=== PATIENT | male | born 1955 | race Caucasian/White ===

== ENCOUNTER 2018-04-24 19:17 | Inpatient (IN) | payer OTHER ==
[2018-04-24] MEDS: SOD CHLORIDE 0.9% 1,000 ML IV (20:10)
[2018-04-24 20:37] LABS: ADD MAN DIFF? NO
[2018-04-24 20:40] LABS: BASOPHIL # 0.1 10^3/ul (0.0-0.1); BASOPHILS % 0.4 % (0.0-2.0); EOSINOPHILS % 6.9 % (0.0-7.0); HEMATOCRIT 30.7 % (42.0-52.0); HEMOGLOBIN 10.1 g/dl (14.0-18.0); LYMPHOCYTES # 2.5 10^3/ul (0.8-2.9); LYMPHOCYTES % 18.4 % (15.0-51.0); MEAN CORPUSCULAR HEMOGLOBIN 28.9 pg (29.0-33.0); MEAN CORPUSCULAR HGB CONC 32.9 g/dl (32.0-37.0); MEAN CORPUSCULAR VOLUME 87.7 fl (82.0-101.0); MEAN PLATELET VOLUME 10.6 fl (7.4-10.4); MONOCYTES % 7.3 % (0.0-11.0); NEUTROPHIL # 9.2 10^3/ul (1.6-7.5); NEUTROPHILS % 66.5 % (39.0-77.0); PLATELET COUNT 212 10^3/UL (140-415); RED CELL DISTRIBUTION WIDTH 13.8 % (11.5-14.5)
[2018-04-24 20:40] LABS: WHITE BLOOD COUNT 13.8 10^3/ul (4.8-10.8)
[2018-04-24 20:55] LABS: INR 1.03; PROTIME 13.6 Sec (11.9-14.9); PT RATIO 1.1
[2018-04-24 20:56] LABS: PARTIAL THROMBOPLASTIN TIME 26.9 Sec (23.0-35.0)
[2018-04-24 20:58] LABS: ALANINE AMINOTRANSFERASE 21 IU/L (13-69); ALBUMIN 3.5 g/dl (3.3-4.9); ALBUMIN/GLOBULIN RATIO 1.16; ALKALINE PHOSPHATASE 86 IU/L (42-121); ANION GAP 14 (5-13); ASPARTATE AMINO TRANSFERASE 19 IU/L (15-46); BILIRUBIN,INDIRECT 0.1 mg/dl (0-1.1); BILIRUBIN,TOTAL 0.1 mg/dl (0.2-1.3); BLOOD UREA NITROGEN 17 mg/dl (7-20); CALCIUM 8.7 mg/dl (8.4-10.2); CARBON DIOXIDE 24 mmol/L (21-31); CHLORIDE 98 mmol/L (97-110); CREATININE 0.58 mg/dl (0.61-1.24); Estimated GFR > 60 mL/min (>60); GLUCOSE 256 mg/dl (70-220); POTASSIUM 4.2 mmol/L (3.5-5.1); SODIUM 136 mmol/L (135-144); TOTAL PROTEIN 6.5 g/dl (6.1-8.1)
[2018-04-24 21:05] LABS: LIPASE < 10 U/L (23-300)
[2018-04-24 21:10] LABS: TROPONIN-I 0.035 ng/ml (0.000-0.120)
[2018-04-24] MEDS: PHENYLephrine (100 MCG/ML) 10ML SYG ZFS (21:45)
[2018-04-24] MEDS: DILTIAZEM (CD) 120 MG CAP PO (21:59)
[2018-04-24] MEDS: DIGOXIN 500 MCG INJ IV ×2 (22:38→23:30)
[2018-04-24] MEDS ORDERED: DEXTROSE 50% 50 ML SYRINGE IV ×2 (23:30)
[2018-04-24] MEDS ORDERED: GLUCAGON 1 MG INJ IM (23:30)
[2018-04-24] MEDS ORDERED: GLUCOSE GEL 15 GRAM TUBE PO ×2 (23:30)
[2018-04-24] MEDS ORDERED: GLUCOSE GEL 15 GRAM TUBE BUCCAL (23:30)
[2018-04-25] MEDS: NS + KCL 20 MEQ 1,000 ML IV ×3 (01:15→19:38)
[2018-04-25] MEDS: ACCU-CHEK XX (02:01)
[2018-04-25] MEDS: DIAZEPAM 5 MG TAB PO ×2 (02:04→15:13)
[2018-04-25 04:54] LABS: ADD MAN DIFF? NO
[2018-04-25 05:00] LABS: BASOPHILS % 0.3 % (0.0-2.0); EOSINOPHILS # 0.7 10^3/ul (0.0-0.5); EOSINOPHILS % 6.6 % (0.0-7.0); HEMATOCRIT 28.2 % (42.0-52.0); HEMOGLOBIN 9.2 g/dl (14.0-18.0); LYMPHOCYTES # 2.4 10^3/ul (0.8-2.9); LYMPHOCYTES % 21.7 % (15.0-51.0); MEAN CORPUSCULAR HEMOGLOBIN 28.7 pg (29.0-33.0); MEAN CORPUSCULAR HGB CONC 32.6 g/dl (32.0-37.0); MEAN CORPUSCULAR VOLUME 87.9 fl (82.0-101.0); MEAN PLATELET VOLUME 10.7 fl (7.4-10.4); MONOCYTE # 0.9 10^3/ul (0.3-0.9); MONOCYTES % 7.7 % (0.0-11.0); NEUTROPHILS % 63.3 % (39.0-77.0); PLATELET COUNT 195 10^3/UL (140-415); RED BLOOD COUNT 3.21 10^6/ul (4.70-6.10)
[2018-04-25 05:20] LABS: ANION GAP 11 (5-13); BLOOD UREA NITROGEN 13 mg/dl (7-20); CALCIUM 8.1 mg/dl (8.4-10.2); CARBON DIOXIDE 24 mmol/L (21-31); CHLORIDE 105 mmol/L (97-110); CREATININE 0.62 mg/dl (0.61-1.24); Estimated GFR > 60 mL/min (>60); GLUCOSE 302 mg/dl (70-220); POTASSIUM 4.7 mmol/L (3.5-5.1); SODIUM 140 mmol/L (135-144)
[2018-04-25] MEDS: SOD CHLORIDE 0.9% 100 ML (05:59)
[2018-04-25] MEDS: IOHEXOL 300MG/ML 150 ML BTL (05:59)
[2018-04-25] MEDS: INSULIN ASPART [NOVOLOG] 3 ML PEN SC ×7 (08:25→21:03)
[2018-04-25] MEDS: PIOGLITAZONE 30 MG TAB PO (08:26)
[2018-04-25] MEDS: MIDODRINE 5 MG TAB PO ×3 (08:28→17:56)
[2018-04-25] MEDS: CYANOCOBALAMIN 500 MCG TAB PO (08:28)
[2018-04-25] MEDS: LORAZEPAM 0.5 MG TAB PO (09:27)
[2018-04-25] MEDS: ACETAMINOPHEN 500 MG TAB PO ×2 (10:02→21:47)
[2018-04-25] MEDS: DIGOXIN 0.125 MG TAB PO (13:08)
[2018-04-25 18:06] LABS: HEMOGLOBIN A1C 8.1 % (0-5.9)
[2018-04-25] MEDS: INSULIN GLARGINE [LANTus] (100 UNITS/ML) SYG SC (20:00)
[2018-04-26] MEDS: DIAZEPAM 5 MG TAB PO ×2 (01:57→16:26)
[2018-04-26] MEDS: ACETAMINOPHEN 500 MG TAB PO (01:58)
[2018-04-26] MEDS: ACCU-CHEK XX (02:00)
[2018-04-26] MEDS: NS + KCL 20 MEQ 1,000 ML IV ×2 (05:00→16:26)
[2018-04-26 05:47] LABS: ADD MAN DIFF? NO
[2018-04-26 05:51] LABS: BASOPHILS % 0.3 % (0.0-2.0); EOSINOPHILS # 0.9 10^3/ul (0.0-0.5); EOSINOPHILS % 9.3 % (0.0-7.0); HEMOGLOBIN 10.4 g/dl (14.0-18.0); LYMPHOCYTES % 20.7 % (15.0-51.0); MEAN CORPUSCULAR HEMOGLOBIN 28.3 pg (29.0-33.0); MEAN CORPUSCULAR HGB CONC 32.5 g/dl (32.0-37.0); MONOCYTE # 0.8 10^3/ul (0.3-0.9); MONOCYTES % 8.2 % (0.0-11.0); NEUTROPHIL # 5.9 10^3/ul (1.6-7.5); PLATELET COUNT 208 10^3/UL (140-415); RED BLOOD COUNT 3.68 10^6/ul (4.70-6.10); RED CELL DISTRIBUTION WIDTH 14.2 % (11.5-14.5)
[2018-04-26 05:51] LABS: WHITE BLOOD COUNT 9.7 10^3/ul (4.8-10.8)
[2018-04-26 06:23] LABS: ANION GAP 10 (5-13); BLOOD UREA NITROGEN 15 mg/dl (7-20); CARBON DIOXIDE 24 mmol/L (21-31); CHLORIDE 104 mmol/L (97-110); CREATININE 0.58 mg/dl (0.61-1.24); Estimated GFR > 60 mL/min (>60); GLUCOSE 256 mg/dl (70-220); POTASSIUM 4.5 mmol/L (3.5-5.1); SODIUM 138 mmol/L (135-144)
[2018-04-26] MEDS: PIOGLITAZONE 30 MG TAB PO (08:04)
[2018-04-26] MEDS: CYANOCOBALAMIN 500 MCG TAB PO (08:04)
[2018-04-26] MEDS: MIDODRINE 5 MG TAB PO ×3 (08:05→17:40)
[2018-04-26] MEDS: INSULIN ASPART [NOVOLOG] 3 ML PEN SC ×7 (08:14→20:27)
[2018-04-26] MEDS: HYDROCODONE/APAP (5/325) TAB PO ×2 (10:17→18:14)
[2018-04-26] MEDS: DIGOXIN 0.125 MG TAB PO (12:19)
[2018-04-26] MEDS: LORAZEPAM 0.5 MG TAB PO (12:48)
[2018-04-26] MEDS: COLLAGENASE 5 GM (UD JAR) TOP (18:14)
[2018-04-26] MEDS: BALSAM PERU/CASTOR OIL 60 GM TUBE TOP (18:44)
[2018-04-26] MEDS: MUPIROCIN 2% 22 GM OINT TOP (20:27)
[2018-04-26] MEDS: INSULIN GLARGINE [LANTus] (100 UNITS/ML) SYG SC (20:37)
[2018-04-27] MEDS: NS + KCL 20 MEQ 1,000 ML IV ×3 (01:04→18:37)
[2018-04-27] MEDS: HYDROCODONE/APAP (5/325) TAB PO ×3 (01:05→20:53)
[2018-04-27] MEDS: ACCU-CHEK XX (01:56)
[2018-04-27] MEDS: DIAZEPAM 5 MG TAB PO ×2 (03:31→14:21)
[2018-04-27 05:54] LABS: ADD MAN DIFF? NO
[2018-04-27 06:09] LABS: WHITE BLOOD COUNT 12.3 10^3/ul (4.8-10.8)
[2018-04-27 06:09] LABS: BASOPHILS % 0.3 % (0.0-2.0); EOSINOPHILS # 0.8 10^3/ul (0.0-0.5); EOSINOPHILS % 6.6 % (0.0-7.0); HEMATOCRIT 32.2 % (42.0-52.0); HEMOGLOBIN 10.7 g/dl (14.0-18.0); LYMPHOCYTES # 2.1 10^3/ul (0.8-2.9); LYMPHOCYTES % 17.3 % (15.0-51.0); MEAN CORPUSCULAR HEMOGLOBIN 29.1 pg (29.0-33.0); MEAN CORPUSCULAR HGB CONC 33.2 g/dl (32.0-37.0); MEAN CORPUSCULAR VOLUME 87.5 fl (82.0-101.0); MEAN PLATELET VOLUME 10.8 fl (7.4-10.4); MONOCYTE # 0.9 10^3/ul (0.3-0.9); MONOCYTES % 7.5 % (0.0-11.0); NEUTROPHIL # 8.3 10^3/ul (1.6-7.5); PLATELET COUNT 202 10^3/UL (140-415); RED BLOOD COUNT 3.68 10^6/ul (4.70-6.10); RED CELL DISTRIBUTION WIDTH 14.5 % (11.5-14.5)
[2018-04-27 06:27] LABS: ANION GAP 3 (5-13); BLOOD UREA NITROGEN 17 mg/dl (7-20); CALCIUM 8.7 mg/dl (8.4-10.2); CARBON DIOXIDE 29 mmol/L (21-31); CHLORIDE 108 mmol/L (97-110); CREATININE 0.66 mg/dl (0.61-1.24); Estimated GFR > 60 mL/min (>60); GLUCOSE 122 mg/dl (70-220); MAGNESIUM 1.7 mg/dl (1.7-2.5); POTASSIUM 4.3 mmol/L (3.5-5.1); SODIUM 140 mmol/L (135-144)
[2018-04-27] MEDS: INSULIN ASPART [NOVOLOG] 3 ML PEN SC ×7 (08:00→20:48)
[2018-04-27] MEDS: BALSAM PERU/CASTOR OIL 60 GM TUBE TOP (08:13)
[2018-04-27] MEDS: MIDODRINE 5 MG TAB PO ×3 (08:13→17:54)
[2018-04-27] MEDS: metFORMIN 500 MG TAB PO ×2 (08:13→17:54)
[2018-04-27] MEDS: COLLAGENASE 5 GM (UD JAR) TOP (08:13)
[2018-04-27] MEDS: CYANOCOBALAMIN 500 MCG TAB PO (08:13)
[2018-04-27] MEDS: MUPIROCIN 2% 22 GM OINT TOP ×2 (08:14→21:04)
[2018-04-27] MEDS: ENOXAPARIN 30 MG/0.3 ML SYG SC (08:24)
[2018-04-27] MEDS: PIOGLITAZONE 30 MG TAB PO (10:05)
[2018-04-27] MEDS: DIGOXIN 0.125 MG TAB PO (12:16)
[2018-04-27] MEDS: MAGNESIUM SULFATE 3 GM in DEXTROSE 5% 100 ML IVPB (14:20)
[2018-04-27] MEDS: ACETAMINOPHEN 500 MG TAB PO (19:11)
[2018-04-27] MEDS: CEFTRIAXONE 1 GM/50 ML (PMX) 50 ML IVPB (20:41)
[2018-04-27 21:04] LABS: LACTIC ACID 1.8 mmol/L (0.5-2.0)
[2018-04-27] MEDS: INSULIN GLARGINE [LANTus] (100 UNITS/ML) SYG SC (21:45)
[2018-04-28 01:16] LABS: ADD UMIC NO; UR ASCORBIC ACID NEGATIVE (NEGATIVE); UR BILIRUBIN (Dip) NEGATIVE (NEGATIVE); UR BLOOD (Dip) NEGATIVE (NEGATIVE); UR CLARITY CLEAR (CLEAR); UR COLOR STRAW (YELLOW); UR GLUCOSE (Dip) 1+ mg/dL (NEGATIVE); UR KETONES (Dip) NEGATIVE (NEGATIVE); UR LEUKOCYTE ESTERASE (Dip) NEGATIVE Leu/ul (NEGATIVE); UR NITRITE (Dip) NEGATIVE (NEGATIVE); UR SPECIFIC GRAVITY (Dip) 1.012 (1.003-1.030); UR TOTAL PROTEIN (Dip) NEGATIVE (NEGATIVE); UR UROBILINOGEN (Dip) NEGATIVE (NEGATIVE)
[2018-04-28] MEDS: ACCU-CHEK XX ×2 (02:00→21:59)
[2018-04-28] MEDS: DIAZEPAM 5 MG TAB PO ×2 (02:40→12:17)
[2018-04-28] MEDS: NS + KCL 20 MEQ 1,000 ML IV ×3 (05:17→17:39)
[2018-04-28] MEDS: metFORMIN 500 MG TAB PO ×2 (08:33→17:25)
[2018-04-28] MEDS: CYANOCOBALAMIN 500 MCG TAB PO (08:33)
[2018-04-28] MEDS: INSULIN ASPART [NOVOLOG] 3 ML PEN SC ×7 (08:34→21:00)
[2018-04-28] MEDS: ENOXAPARIN 30 MG/0.3 ML SYG SC (08:36)
[2018-04-28] MEDS: MIDODRINE 5 MG TAB PO ×3 (08:40→17:26)
[2018-04-28] MEDS: COLLAGENASE 5 GM (UD JAR) TOP (08:41)
[2018-04-28] MEDS: BALSAM PERU/CASTOR OIL 60 GM TUBE TOP (08:41)
[2018-04-28] MEDS: MUPIROCIN 2% 22 GM OINT TOP ×2 (08:41→21:52)
[2018-04-28] MEDS: HYDROCODONE/APAP (5/325) TAB PO ×2 (10:34→17:56)
[2018-04-28] MEDS: DIGOXIN 0.125 MG TAB PO (12:17)
[2018-04-28 14:19] LABS: ADD MAN DIFF? NO
[2018-04-28 14:21] LABS: BASOPHILS % 0.3 % (0.0-2.0); EOSINOPHILS # 0.9 10^3/ul (0.0-0.5); EOSINOPHILS % 8.6 % (0.0-7.0); HEMATOCRIT 30.4 % (42.0-52.0); HEMOGLOBIN 9.9 g/dl (14.0-18.0); LYMPHOCYTES # 2.2 10^3/ul (0.8-2.9); LYMPHOCYTES % 20.1 % (15.0-51.0); MEAN CORPUSCULAR HEMOGLOBIN 28.9 pg (29.0-33.0); MEAN CORPUSCULAR HGB CONC 32.6 g/dl (32.0-37.0); MEAN CORPUSCULAR VOLUME 88.6 fl (82.0-101.0); MEAN PLATELET VOLUME 10.7 fl (7.4-10.4); MONOCYTES % 9.3 % (0.0-11.0); NEUTROPHIL # 6.7 10^3/ul (1.6-7.5); NEUTROPHILS % 61.2 % (39.0-77.0); PLATELET COUNT 198 10^3/UL (140-415); RED BLOOD COUNT 3.43 10^6/ul (4.70-6.10); RED CELL DISTRIBUTION WIDTH 14.7 % (11.5-14.5)
[2018-04-28 14:45] LABS: ANION GAP 10 (5-13); BLOOD UREA NITROGEN 17 mg/dl (7-20); CARBON DIOXIDE 26 mmol/L (21-31); CHLORIDE 102 mmol/L (97-110); CREATININE 0.66 mg/dl (0.61-1.24); Estimated GFR > 60 mL/min (>60); GLUCOSE 106 mg/dl (70-220); POTASSIUM 4.2 mmol/L (3.5-5.1); SODIUM 138 mmol/L (135-144)
[2018-04-28] MEDS: POTASSIUM CHLORIDE 20 MEQ in SOD CHLORIDE 0.9% 1,000 ML IV (17:53)
[2018-04-28] MEDS: CEFTRIAXONE 1 GM/50 ML (PMX) 50 ML IVPB (21:49)
[2018-04-28] MEDS: INSULIN GLARGINE [LANTus] (100 UNITS/ML) SYG SC (22:13)
[2018-04-29] MEDS: DIAZEPAM 5 MG TAB PO ×2 (00:39→12:45)
[2018-04-29] MEDS: HYDROCODONE/APAP (5/325) TAB PO ×4 (01:56→20:26)
[2018-04-29] MEDS: POTASSIUM CHLORIDE 20 MEQ in SOD CHLORIDE 0.9% 1,000 ML IV ×2 (05:41→12:41)
[2018-04-29 06:19] LABS: ADD MAN DIFF? NO
[2018-04-29 06:37] LABS: WHITE BLOOD COUNT 9.5 10^3/ul (4.8-10.8)
[2018-04-29 06:37] LABS: BASOPHILS % 0.3 % (0.0-2.0); EOSINOPHILS # 0.8 10^3/ul (0.0-0.5); EOSINOPHILS % 8.9 % (0.0-7.0); HEMOGLOBIN 10.3 g/dl (14.0-18.0); LYMPHOCYTES # 1.9 10^3/ul (0.8-2.9); LYMPHOCYTES % 19.8 % (15.0-51.0); MEAN CORPUSCULAR HEMOGLOBIN 28.7 pg (29.0-33.0); MEAN CORPUSCULAR HGB CONC 32.2 g/dl (32.0-37.0); MEAN CORPUSCULAR VOLUME 89.1 fl (82.0-101.0); MEAN PLATELET VOLUME 11.2 fl (7.4-10.4); MONOCYTES % 10.5 % (0.0-11.0); NEUTROPHIL # 5.7 10^3/ul (1.6-7.5); NEUTROPHILS % 60.3 % (39.0-77.0); PLATELET COUNT 196 10^3/UL (140-415); RED BLOOD COUNT 3.59 10^6/ul (4.70-6.10); RED CELL DISTRIBUTION WIDTH 14.5 % (11.5-14.5)
[2018-04-29 07:01] LABS: ANION GAP 3 (5-13); BLOOD UREA NITROGEN 18 mg/dl (7-20); CALCIUM 8.5 mg/dl (8.4-10.2); CARBON DIOXIDE 31 mmol/L (21-31); CHLORIDE 103 mmol/L (97-110); CREATININE 0.65 mg/dl (0.61-1.24); Estimated GFR > 60 mL/min (>60); GLUCOSE 185 mg/dl (70-220); POTASSIUM 4.8 mmol/L (3.5-5.1); SODIUM 137 mmol/L (135-144)
[2018-04-29] MEDS: metFORMIN 500 MG TAB PO ×2 (07:48→17:36)
[2018-04-29] MEDS: INSULIN ASPART [NOVOLOG] 3 ML PEN SC ×7 (07:53→20:34)
[2018-04-29] MEDS: MIDODRINE 5 MG TAB PO ×3 (08:46→17:36)
[2018-04-29] MEDS: CYANOCOBALAMIN 500 MCG TAB PO (08:46)
[2018-04-29] MEDS: MUPIROCIN 2% 22 GM OINT TOP ×2 (08:48→20:28)
[2018-04-29] MEDS: BALSAM PERU/CASTOR OIL 60 GM TUBE TOP (08:48)
[2018-04-29] MEDS: COLLAGENASE 5 GM (UD JAR) TOP (08:48)
[2018-04-29] MEDS: ENOXAPARIN 30 MG/0.3 ML SYG SC (08:56)
[2018-04-29] MEDS: DIGOXIN 0.125 MG TAB PO (12:40)
[2018-04-29] MEDS: LEVOFLOXACIN 500 MG TAB PO (17:36)
[2018-04-29] MEDS: FOSFOMYCIN 3 GM PACKET PO (17:36)
[2018-04-29] MEDS: PHENAZOPYRIDINE 200 MG TAB PO ×2 (17:36→21:16)
[2018-04-29] MEDS: DOXYCYCLINE 100 MG TAB PO (20:26)
[2018-04-29] MEDS: INSULIN GLARGINE [LANTus] (100 UNITS/ML) SYG SC (20:48)
[2018-04-30] MEDS: DIAZEPAM 5 MG TAB PO ×3 (00:58→23:21)
[2018-04-30] MEDS: POTASSIUM CHLORIDE 20 MEQ in SOD CHLORIDE 0.9% 1,000 ML IV ×4 (01:01→23:56)
[2018-04-30] MEDS: ACCU-CHEK XX (01:02)
[2018-04-30] MEDS: LEVOFLOXACIN 500 MG TAB PO (05:09)
[2018-04-30] MEDS: HYDROCODONE/APAP (5/325) TAB PO ×4 (05:09→19:42)
[2018-04-30] MEDS: INSULIN ASPART [NOVOLOG] 3 ML PEN SC ×7 (07:53→20:18)
[2018-04-30] MEDS: BALSAM PERU/CASTOR OIL 60 GM TUBE TOP (09:19)
[2018-04-30] MEDS: MUPIROCIN 2% 22 GM OINT TOP ×2 (09:21→20:16)
[2018-04-30] MEDS: COLLAGENASE 5 GM (UD JAR) TOP (09:24)
[2018-04-30] MEDS: PHENAZOPYRIDINE 200 MG TAB PO ×2 (09:33→13:07)
[2018-04-30] MEDS: DOXYCYCLINE 100 MG TAB PO ×2 (09:33→20:16)
[2018-04-30] MEDS: metFORMIN 500 MG TAB PO ×2 (09:33→17:33)
[2018-04-30] MEDS: CYANOCOBALAMIN 500 MCG TAB PO (09:33)
[2018-04-30] MEDS: ENOXAPARIN 30 MG/0.3 ML SYG SC (09:35)
[2018-04-30] MEDS: LORAZEPAM 0.5 MG TAB PO ×2 (09:37→22:08)
[2018-04-30] MEDS: MIDODRINE 5 MG TAB PO ×3 (09:43→17:33)
[2018-04-30] MEDS: DIGOXIN 0.125 MG TAB PO (13:08)
[2018-04-30] MEDS: INSULIN GLARGINE [LANTus] (100 UNITS/ML) SYG SC (20:19)
[2018-04-30] MEDS ORDERED: PHENAZOPYRIDINE 100 MG TAB PO (21:00)
[2018-04-30] MEDS: PHENAZOPYRIDINE 100 MG TAB PO (22:08)
[2018-05-01] MEDS: HYDROCODONE/APAP (5/325) TAB PO ×2 (01:54→08:56)
[2018-05-01] MEDS: ACCU-CHEK XX (02:27)
[2018-05-01] MEDS: INSULIN ASPART [NOVOLOG] 3 ML PEN SC ×4 (08:26→12:41)
[2018-05-01] MEDS: metFORMIN 500 MG TAB PO (08:38)
[2018-05-01] MEDS: MIDODRINE 5 MG TAB PO ×2 (08:38→12:46)
[2018-05-01] MEDS: PHENAZOPYRIDINE 100 MG TAB PO ×2 (08:38→12:38)
[2018-05-01] MEDS: DOXYCYCLINE 100 MG TAB PO (12:03)
[2018-05-01] MEDS: BALSAM PERU/CASTOR OIL 60 GM TUBE TOP (12:03)
[2018-05-01] MEDS: CYANOCOBALAMIN 500 MCG TAB PO (12:03)
[2018-05-01] MEDS: MUPIROCIN 2% 22 GM OINT TOP (12:04)
[2018-05-01] MEDS: COLLAGENASE 5 GM (UD JAR) TOP (12:04)
[2018-05-01] MEDS: DIGOXIN 0.125 MG TAB PO (12:38)
[2018-05-01] MEDS: DIAZEPAM 5 MG TAB PO (12:46)
== END 2018-05-01 13:35 | disposition home or self-care (01) | DRG 310 ==
LOC: 5EC 05-01 02:46 → E/R 19:17 → ICU 21:33 → 6WM 04-26 16:35
PROVIDERS: Internal Medicine
PROC: 05H533Z Insertion of Infusion Device into Right Subclavian Vein, Percutaneous Approach (ICD-10-PCS; principal; 2018-04-24)
DX: I48.91 Unspecified atrial fibrillation (principal); I95.9 Hypotension, unspecified; I10 Essential (primary) hypertension; E53.8 Deficiency of other specified B group vitamins; E86.0 Dehydration; E11.65 Type 2 diabetes mellitus with hyperglycemia; J44.9 Chronic obstructive pulmonary disease, unspecified; S00.01XA Abrasion of scalp, initial encounter; X58.XXXA Exposure to other specified factors, initial encounter; Z22.322 Carrier or suspected carrier of Methicillin resistant Staphylococcus aureus; Z91.11 Patient's noncompliance with dietary regimen; Z79.4 Long term (current) use of insulin
CPT/HCPCS: 71045; 71275; 76937; 80048; 80053; 81003; 82962; 83036; 83605; 83690; 83735; 84484; 85025; 85610; 85730; 86850; 86900; 86901; 86920; 87040; 87081; 87086; 93005; 96374; 97162; 99291-25